=== PATIENT | female | born 1995 ===

== ENCOUNTER 2024-08-16 16:18 | Emergency (ER) | payer SELFPAY ==
[2024-08-16] MEDS: Dexamethasone 4 MG/ML SDV IM ONE (16:45)
== END 2024-08-16 16:49 | disposition home or self-care (01) ==
LOC: DL.ED 16:18
DX: S39.012A Strain of muscle, fascia and tendon of lower back, initial encounter (principal); X50.1XXA Overexertion from prolonged static or awkward postures, initial encounter; Y99.0 Civilian activity done for income or pay
CPT/HCPCS: 96372; 99283; J1100